=== PATIENT | female | born 1995 | race Two or more races ===

== ENCOUNTER 2023-10-04 19:19 | Emergency (ER) | payer OTHER ==
[~2023-10-04] VITALS: Ht 162.6 cm; Wt 61.2 kg
[2023-10-04 22:07] LABS: HEMATOCRIT 38.4 % (36.0-45.00); HEMOGLOBIN 13.3 g/dL (12.0-15.00); MEAN CELL VOLUME 88.7 fL (80.00-100.00); MEAN CORPUSCULAR HEMOGLOBIN 30.6 pg (27.00-32.0); MEAN CORPUSCULAR HGB CONC 34.5 g/dl (32.0-36.0); PLATELET COUNT 319 K/uL (150-450); RED BLOOD COUNT 4.33 M/uL (4.00-6.00); RED CELL DISTRIBUTION WIDTH 12.9 % (11.5-14.5)
[2023-10-04 22:24] LABS: INR 1.02; PROTHROMBIN TIME 10.7 SECONDS (9.0-11.5)
[2023-10-04 22:30] LABS: ANION GAP 7 (10.0-20.0); BLOOD UREA NITROGEN 8 mg/dL (7-18); BUN CREA RATIO 13 (7.0-25.0); CALCIUM 9.3 mg/dL (8.5-10.1); CARBON DIOXIDE 30 mEq/L (21-32); CHLORIDE 104 mmol/L (98-107); CREATININE SERUM 0.64 mg/dL (0.55-1.02); GFR 112.17; GLUCOSE FASTING 93 mg/dL (65-100); OSMOLALITY SERUM 274 MOSM/KG (275-295); POTASSIUM 3.34 mEq/L (3.5-5.1); SODIUM 138 mmol/L (136-145)
[2023-10-04 22:38] LABS: HCG QUANTITATIVE < 1 mUI/mL (1-3)
[2023-10-05] MEDS ORDERED: ACETAMINOPHEN500 M2 PO (00:46)
[2023-10-05] MEDS ORDERED: MEDROLPACK PO (00:46)
[2023-10-05] MEDS ORDERED: ANTIVERT25 M2 PO (00:47)
== END 2023-10-05 01:12 | disposition home or self-care (01) ==
LOC: ER 19:20
PROVIDERS: General Practice
DX: R51.9 Headache, unspecified (principal); M54.2 Cervicalgia; R42 Dizziness and giddiness; Z88.6 Allergy status to analgesic agent